=== PATIENT | female | born 1965 | race Caucasian/White ===

== ENCOUNTER 2018-05-16 06:04 | Day surgery (SDC) | payer OTHER ==
[2018-05-16] MEDS ORDERED: Ringers Lactate 1,000 ML IV ONE (06:26)
[2018-05-16 06:48] LABS: Specific Gravity 1.025 (1.005-1.030)
[2018-05-16] MEDS ORDERED: FENTANYL CITR 100 MCG/2 ML ONE (07:05)
[2018-05-16] MEDS ORDERED: ONDANSETRON HCL 40 MG/20 ML VIAL ONE (07:06)
[2018-05-16] MEDS ORDERED: PROPOFOL 200 MG/20 ML VIAL IV ONE (07:06)
[2018-05-16] MEDS ORDERED: LIDOCAINE 1% MPF 2 ML AMPULE ONE (07:09)
[2018-05-16] MEDS ORDERED: MIDAZOLAM HCL 2 MG/2 ML INJ ONE (07:10)
[2018-05-16] MEDS ORDERED: KETOROLAC 30 MG/ML INJ ONE (08:17)
--- NOTE | 2018-05-16 17:20 | OP ---
Date of Procedure: 05/16/2018 Surgeon: Radhika Houser MD Preoperative Diagnoses: Postmenopausal bleeding and leiomyoma. Postoperative Diagnoses: Postmenopausal bleeding and leiomyoma. Procedures Performed: Hysteroscopy, dilation and curettage with Symphion for resection of the endome trium. Anesthesia: General with LMA. Specimens: Endometrial curettings. Complications: None. Drains: None. Condition: The patient is stable. Findings: Endometrial cavity was empty. The endometrium appeared to be thickened, and there appeare d to be some adhesions on the right side, however, most of the endometrium appeared to be unremarkabl e without any tumors or irregularities. No impression of a leiomyoma seen inside the cavity. Indications For Procedure: The patient is a 52-year-old with postmenopausal bleeding. She was evalu ated with transvaginal ultrasound, which showed leiomyoma, subendometrial or submucosal. Her endomet rial thickness appeared to be significant, so she was counseled for cavity visualization and sampling . Her FSH level was 33.7 at this time and the lining thickness was 2.12 cm and appeared to be hydrog enous. There was a 2.3 cm posterior wall leiomyoma. She was consented and brought in for hysteroscopy, possible myomectomy, polypectomy, and D and C. Description Of Procedure: After informed consent was verified, she was taken back to the OR, placed in a supine fashion on the operating table. After general anesthesia was given, she was placed in a dorsal lithotomy position. Pelvic exam performed. Uterus 10 to 12 week size and anteflexed. No adn exal masses were palpable. Betadine prep x3 was done on the vaginal canal and the cervix. Speculum used to expose the cervix. Anterior lip grasped with 2 Allis clamps. The cervix dilated with Hegar dilators to 14-Niuean. Then , the Symphion lens and the sheath were used for priming and then this was directly placed into the c ervical canal under direct visualization. Uterine cavity was entered. The lining appeared to be thi ck. No intracavitary lesions. No leiomyomata. So I decided given the endometrial thickness that wa s noted as over 2 cm in this patient who is perimenopausal to perform the curettings with a Symphion so that the sampling would be optimal. The Symphion device was taken. The mean arterial pressure was 75 mmHg and the pressure on the pump w as 85 mmHg. Normal saline solution was used. The resectoscope was introduced into the uterine cavit y starting at the fundus in a 360 fashion starting in the canal in the upper part and dragging it jonna n. The entire canal was sampled for about 4 cm length in a circumferential fashion. Once there was adequate sampling, the adhesions on the right side were also taken down as well as on the top. Then I rinsed the cavity out. There was no need for coagulation at this point. Then, the scope was remov ed. The fluid deficit was minimal. Instrument, needle, and sponge counts were done after everything was removed and they were correct. The patient was recovered from anesthesia in the OR and taken to PACU in stable condition. She will follow up with me in 1 week for results. WILLIAM Voice ID: [id number] Report ID: [id number]
== END 2018-05-16 10:00 | disposition home or self-care (01) ==
LOC: OR 06:04
PROVIDERS: ATTEND Obstetrics & Gynecology
PROC: 0UDB8ZX Extraction of Endometrium, Via Natural or Artificial Opening Endoscopic, Diagnostic (ICD-10-PCS; principal; 2018-05-16 07:00)
DX: N95.0 Postmenopausal bleeding (principal); D25.9 Leiomyoma of uterus, unspecified; F32.9 Major depressive disorder, single episode, unspecified; Z82.49 Family history of ischemic heart disease and other diseases of the circulatory system; Z82.3 Family history of stroke; Z83.3 Family history of diabetes mellitus
CPT/HCPCS: 81025; 88305; J2001; J2250; J2405; J3010

== ENCOUNTER 2019-09-08 12:06 | Emergency (ER) | payer BC, OTHER ==
--- NOTE | 2019-09-08 13:48 | RAD REPORT ---
EXAM DESCRIPTION: RAD - Knee Left 3 View - 09/08/2019 1:30 pm CLINICAL HISTORY: PAINslip and fall accident COMPARISON: No comparisons FINDINGS: No fracture, dislocation or periosteal reaction.No joint effusion seen. No joint space adal rowing. No soft tissue abnormality. IMPRESSION: Negative left knee. Clinical concerns for internal derangement or occult bony injury could be further assessed with MR im aging.
--- NOTE | 2019-09-08 13:54 | EDPHYS ---
Physician Documentation [facility] Name: Angelique Day Age: 53 yrs Sex: Female : 1965 Arrival Date: 09/08/2019 Time: 12:10 Bed 18 Private MD: Adán Vega T ED Physician Jose Guadalupe Torres HPI: 09/08 13:06 This 53 yrs old Female presents to ER via Ambulatory with complaints of Fall pm1 Injury, Knee Pain. 13:06 The patient presents with pain, that is acute. The complaints affect the left knee. pm1 Context: The problem was sustained at home, resulted from twisting of the extremity, during a fall, the patient can partially bear weight, the patient is able to ambulate, with moderate difficulty, Problem is a result from a previous injury: No. Onset: The symptoms/episode began/occurred yesterday. Modifying factors: The symptoms are alleviated by remaining still, the symptoms are aggravated by weight bearing, bending knee. Associated signs and symptoms: Pertinent negatives calf tenderness, numbness, swelling, tingling. Treatment prior to arrival includes: over the counter medications, NSAIDS. Severity of symptoms: in the emergency department the symptoms have improved, with NSAIDs. The patient has not experienced similar symptoms in the past. The patient has not recently seen a physician. 13:06 Patient was getting out of the shower and her left leg was planted outside the shower pm1 as the right leg slipped in the shower. She spun and fell backward. No head injury, headache, neck pain, LOC. Patient with pain to left knee and left hip. Left hip pain has resolved. 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 tw2 Historical: - Allergies: 12:35 No Known Allergies; ss - PMHx: 12:35 Hypertension; ss - PSHx: 12:35 D\T\C; ss - Immunization history:: Adult Immunizations up to date. - Coronavirus screen:: The patient has NOT traveled to [place] in the past 14 days. Proceed with normal triage process as indicated. - Social history:: Smoking status: Patient denies any tobacco usage or history of. - Ebola Screening: : Patient denies exposure to infectious person Patient denies travel to an Ebola-affected area in the 21 days before illness onset. ROS: 13:06 Constitutional: Negative for fever, chills, and weight loss, Neck: Negative for injury, pm1 pain, and swelling, Cardiovascular: Negative for chest pain, palpitations, and edema, Respiratory: Negative for shortness of breath, cough, wheezing, and pleuritic chest pain, Abdomen/GI: Negative for abdominal pain, nausea, vomiting, diarrhea, and constipation, Back: Negative for injury and pain. 13:06 Skin: Negative for injury, rash, and discoloration, Neuro: Negative for headache, weakness, numbness, tingling, and seizure. 13:06 MS/extremity: Positive for pain, of the left knee, Negative for decreased range of motion, deformity. Exam: 13:06 Constitutional: This is a well developed, well nourished patient who is awake, alert, pm1 and in no acute distress. Head/Face: Normocephalic, atraumatic. Neck: Trachea midline, no thyromegaly or masses palpated, and no cervical lymphadenopathy. Supple, full range of motion without nuchal rigidity, or vertebral point tenderness. No Meningismus. Chest/axilla: Normal chest wall appearance and motion. Nontender with no deformity. No lesions are appreciated. Cardiovascular: Regular rate and rhythm with a normal S1 and S2. No gallops, murmurs, or rubs. No pulse deficits. Respiratory: Lungs have equal breath sounds bilaterally, clear to auscultation and percussion. No rales, rhonchi or wheezes noted. No increased work of breathing, no retractions or nasal flaring. Abdomen/GI: Soft, non-tender, with normal bowel sounds. No distension or tympany. No guarding or rebound. No evidence of tenderness throughout. Back: No spinal tenderness. No costovertebral tenderness. Full range of motion. Skin: Warm, dry with normal turgor. Normal color with no rashes, no lesions, and no evidence of cellulitis. 13:06 Musculoskeletal/extremity: Extremities: grossly normal except: noted in the left knee: negative valgus and varus stress test. Pain with rotation of lower leg medially, There is no evidence of decreased ROM, deformity, swelling. Vital Signs: 12:35 BP 131 / 96; Pulse 99; Resp 16; Temp 97.4(TE); Pulse Ox 98% on R/A; Weight 92.53 kg; ss Height 5 ft. 6 in. (167.64 cm); Pain 0/10; 13:19 BP 143 / 95; Pulse 89; Resp 17; Pulse Ox 96% on R/A; tw2 12:35 Body Mass Index 32.93 (92.53 kg, 167.64 cm) MDM: 12:37 Patient medically screened. pm1 13:52 Data reviewed: vital signs. Data interpreted: Pulse oximetry: on room air is 96 %. pm1 Interpretation: normal. Counseling: I had a detailed discussion with the patient and/or guardian regarding: the historical points, exam findings, and any diagnostic results supporting the discharge/admit diagnosis, radiology results, the need for outpatient follow up, to return to the emergency department if symptoms worsen or persist or if there are any questions or concerns that arise at home. 09/08 12:38 Order name: Knee Left 3 View XRAY pm1 09/08 13:19 Order name: Ice pack; Complete Time: 13:19 tw2 09/08 13:52 Order name: Knee Immobilizer; Complete Time: 14:12 pm1 09/08 13:52 Order name: Crutches; Complete Time: 14:12 pm1 Administered Medications: No medications were administered Disposition: 09/08/19 13:53 Discharged to Home. Impression: Pain in left knee. - Condition is Stable. - Discharge Instructions: Elastic Bandage and RICE, Crutch Use, Knee Immobilizer, Knee Pain. - Prescriptions for Ultracet 37.5- 325 mg Oral Tablet - take 1 tablet by ORAL route every 6 hours As needed - for up to 5 days; do not exceed 8 tablets per day.; 20 tablet. - Medication Reconciliation Form, Thank You Letter, Antibiotic Education, Prescription Opioid Use form. - Follow up: Emergency Department; When: As needed; Reason: Worsening of condition. Follow up: Private Physician; When: 2 - 3 days; Reason: Recheck today's complaints, Continuance of care, Re-evaluation by your physician. - Problem is new. - Symptoms have improved. Addendum: 09/10/2019 08:21 Co-signature as Attending Physician, Jose Guadalupe Torres MD I agree with the assessment and c pritchard plan of care. Signatures: Dispatcher [employer] EDMT Jose Guadalupe Torres MD MD cha Smirch, Shelby, RN RN Kenton Carbajal, ROSALVA HEAD START TEACHER pm1 Gillian Edmonds RN RN tw2 Corrections: (The following items were deleted from the chart) 09/08 14:13 13:53 09/08/2019 13:53 Discharged to Home. Impression: Pain in left knee. Condition is tw2 Stable. Forms are Medication Reconciliation Form, Thank You Letter, Antibiotic Education, Prescription Opioid Use. Follow up: Emergency Department; When: As needed; Reason: Worsening of condition. Follow up: Private Physician; When: 2 - 3 days; Reason: Recheck today's complaints, Continuance of care, Re-evaluation by your physician. Problem is new. Symptoms have improved. pm1
--- NOTE | 2019-09-08 13:54 | ER ---
Nurse's Notes [facility] Name: Angelique Dya Age: 53 yrs Sex: Female : 1965 Arrival Date: 09/08/2019 Time: 12:10 Bed 18 Private MD: Adán Vega T Diagnosis: Pain in left knee Presentation: 09/08 12:32 Presenting complaint: Presenting complaint: Patient states: L knee pain after slipping ss in shower yesterday. Transition of care: patient was not received from another setting of care. Onset of symptoms was September 07, 2019. Risk Assessment: Do you want to hurt yourself or someone else? Patient reports no desire to harm self or others. Initial Sepsis Screen: Does the patient meet any 2 criteria? HR > 90 bpm. Does the patient have a suspected source of infection? No. Patient's initial sepsis screen is negative. Care prior to arrival: None. 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 tw2 Historical: - Allergies: 12:35 No Known Allergies; ss - PMHx: 12:35 Hypertension; ss - PSHx: 12:35 D\T\C; ss - Immunization history:: Adult Immunizations up to date. - Coronavirus screen:: The patient has NOT traveled to [place] in the past 14 days. Proceed with normal triage process as indicated. - Social history:: Smoking status: Patient denies any tobacco usage or history of. - Ebola Screening: : Patient denies exposure to infectious person Patient denies travel to an Ebola-affected area in the 21 days before illness onset. Screenin:55 Abuse screen: Denies threats or abuse. Nutritional screening: No deficits noted. tw2 Tuberculosis screening: No symptoms or risk factors identified. Fall Risk None identified. Assessment: 12:40 General: Appears in no apparent distress. well groomed, Behavior is calm, cooperative, tw2 appropriate for age. Pain: Complains of pain in left knee. Neuro: Level of Consciousness is awake, alert, obeys commands, Oriented to person, place, time, situation. Cardiovascular: Patient's skin is warm and dry. Respiratory: Airway is patent Respiratory effort is even, unlabored, Respiratory pattern is regular, symmetrical. GI: No signs and/or symptoms were reported involving the gastrointestinal system. : No signs and/or symptoms were reported regarding the genitourinary system. EENT: No signs and/or symptoms were reported regarding the EENT system. Derm: No signs and/or symptoms reported regarding the dermatologic system. Musculoskeletal: Circulation, motion, and sensation intact. Range of motion: intact in all extremities, Reports pain in left knee. 12:54 Reassessment: provider at bedside at this time. tw2 13:13 Reassessment: xray at bedside at this time. tw2 13:20 Reassessment: Patient appears in no apparent distress at this time. No changes from tw2 previously documented assessment. Patient and/or family updated on plan of care and expected duration. Pain level reassessed. Patient is alert, oriented x 3, equal unlabored respirations, skin warm/dry/pink. 14:13 Reassessment: Patient appears in no apparent distress at this time. No changes from tw2 previously documented assessment. Patient and/or family updated on plan of care and expected duration. Pain level reassessed. Patient is alert, oriented x 3, equal unlabored respirations, skin warm/dry/pink. Vital Signs: 12:35 BP 131 / 96; Pulse 99; Resp 16; Temp 97.4(TE); Pulse Ox 98% on R/A; Weight 92.53 kg; ss Height 5 ft. 6 in. (167.64 cm); Pain 0/10; 13:19 BP 143 / 95; Pulse 89; Resp 17; Pulse Ox 96% on R/A; tw2 12:35 Body Mass Index 32.93 (92.53 kg, 167.64 cm) ED Course: 12:10 Patient arrived in ED. mr 12:10 Adán Vega MD is Private Physician. mr 12:32 Triage completed. ss 12:35 Arm band placed on left wrist. ss 12:36 Bed in low position. Call light in reach. tw2 12:37 Kenton Carbajal NP is PHCP. pm1 12:37 Jose Guadalupe Torres MD is Attending Physician. pm1 12:54 Gillian Edmonds RN is Primary Nurse. tw2 14:13 No provider procedures requiring assistance completed. Patient did not have IV access tw2 during this emergency room visit. Administered Medications: No medications were administered Outcome: 13:53 Discharge ordered by MD. pm1 14:13 Discharged to home via wheelchair, with crutches, with significant other. tw2 14:13 Condition: stable 14:13 Discharge instructions given to patient, significant other, Instructed on discharge instructions, follow up and referral plans. no drinking with medication, no driving heavy equipment, medication usage, safety practices, crutch walking, Demonstrated understanding of instructions, follow-up care, medications, crutch walking, Prescriptions given X 1. 14:13 Patient left the ED. tw2 Signatures: Amanda Razo Shelby RN RN Kenton Carbajal NP ART TRACER pm1 Gillian Edmonds RN RN tw2 Corrections: (The following items were deleted from the chart) 12:34 12:32 Presenting complaint: [facility] 12:34 12:32 Onset of symptoms was September 08, 2019 [facility]
[2019-09-08 14:20] VITALS: TEMP 97.4
[2019-09-08 14:21] VITALS: BP 143/95; O2SAT 96
== END 2019-09-08 14:13 | disposition home or self-care (01) ==
LOC: ER 12:06
DX: M25.562 Pain in left knee (principal); W18.2XXA Fall in (into) shower or empty bathtub, initial encounter; Y93.89 Activity, other specified; Y92.012 Bathroom of single-family (private) house as the place of occurrence of the external cause
CPT/HCPCS: 99283

== ENCOUNTER 2020-06-24 08:51 | Emergency (ER) | payer BC ==
[2020-06-24 09:51] LABS: Absolute Lymphocytes (CBC) 0.5 K/uL (0.7-4.9); Basophils % 0.1 % (0-1.3); Hematocrit 38.1 % (36.0-45.0); Lymphocytes % 7.3 % (15.3-44.8); MPV 8.3 fL (7.6-11.3)
[2020-06-24 09:54] LABS: ALT/SGPT 59 U/L (12-78); AST/SGOT 38 U/L (15-37); Alkaline Phosphatase 74 U/L (45-117); BUN Blood Urea Nitrogen 8 mg/dL (7-18); Bicarbonate 26 mmol/L (21-32); Bilirubin Total 0.7 mg/dL (0.2-1.0); Glucose Level 131 mg/dL (74-106); Potassium 3.3 mmol/L (3.5-5.1); Protein, Total 6.9 g/dL (6.4-8.2); Sodium Level 135 mmol/L (136-145)
[2020-06-24] MEDS ORDERED: IBUPROFEN 200 MG TAB PO ONE (09:59)
[2020-06-24] MEDS ORDERED: dexAMETHasone 10 MG/ML VIAL ONE (09:59)
[2020-06-24] MEDS ORDERED: ASPIRIN 81 MG CHEWABLE TABLET ONE (09:59)
[2020-06-24] MEDS ORDERED: IBUPROFEN 400 MG TAB ONE (10:00)
[2020-06-24] MEDS ORDERED: CEFTRIAXONE/SWI 1gm 1 GM/10 ML SYR ONE (10:00)
[2020-06-24] MEDS ORDERED: AZITHROMYCIN IV 500 MG in NA CHLORIDE 0.9% 250 ML IVPB ONE (10:00)
[2020-06-24] MEDS ORDERED: FAMOTIDINE 20 MG/2 ML VIAL IV ONE (10:00)
[2020-06-24] MEDS ORDERED: NA CHLORIDE 0.9% 1,000 ML ONE ×2 (10:00→10:30)
[2020-06-24] MEDS ORDERED: POTASSIUM 25 MEQ EFFERV TAB ONE (10:30)
--- NOTE | 2020-06-24 10:36 | RAD REPORT ---
EXAM DESCRIPTION: [facility] Single View06/24/2020 10:04 am CLINICAL HISTORY: Shortness of breath COMPARISON: none FINDINGS: Mild bilateral pulmonary opacities. The heart is normal size IMPRESSION: Mild bilateral pulmonary opacities may indicate pneumonia
--- NOTE | 2020-06-24 10:36 | RAD REPORT ---
EXAM DESCRIPTION: CT - Chest For Pe Angio - 06/24/2020 10:25 am CLINICAL HISTORY: Shortness of breath COMPARISON: None. TECHNIQUE: Dynamically enhanced axial 3 mm thick images of the chest were obtained during administra tion of <100> mL Isovue 370 IV contrast. Coronal and oblique reconstruction images were generated and reviewed. Exam utilizes a protocol for optimal evaluation of pulmonary arterial tree. Maximum intensity projections 3D imaging was utilized All CT scans are performed using dose optimization technique as appropriate and may include automated exposure control or mA/KV adjustment according to patient size. FINDINGS: Evaluation of some of the peripheral pulmonary arteries is limited secondary to respirator y motion artifact. A pulmonary embolus is not seen. A thoracic aortic aneurysm is not noted. A pleural effusion is not seen. A pericardial effusion is not seen. Mild bilateral ground-glass opacities within the lungs. Mild bilateral hilar lymphadenopathy IMPRESSION: Negative for a pulmonary embolism. Mild bilateral ground-glass opacities within the lungs may indicate Covid pneumonia Mild bilateral hilar lymphadenopathy
--- NOTE | 2020-06-24 10:41 | EDPHYS ---
Physician Documentation [facility] Name: Angelique Day Age: 54 yrs Sex: Female : 1965 Arrival Date: 06/24/2020 Time: 08:56 Bed 2 Private MD: ED Physician Jose Guadalupe Torres HPI: 06/24 09:57 This 54 yrs old Female presents to ER via Ambulatory with complaints of Fever.jesica 09:57 The patient reports fever, that was measured at 102 degrees Fahrenheit. Onset: The jesica symptoms/episode began/occurred 3 day(s) ago. Modifying factors: there are no obvious modifying factors. Associated signs and symptoms: Pertinent positives: arthralgias, chills, cough. Severity of symptoms: At their worst the symptoms were mild in the emergency department the symptoms are unchanged. The patient has not experienced similar symptoms in the past. LINKER UP: 10:02 [facility] N/A - tw2 Historical: - Allergies: 09:13 No Known Allergies; ss - Home Meds: 09:19 Effexor Oral [Active]; losartan oral oral [Active]; ss - PMHx: 09:13 Hypertension; ss 09:19 Arthritis; ss - PSHx: 09:13 D\T\C; ss - Immunization history:: Adult Immunizations up to date. - Social history:: Smoking status: Patient denies any tobacco usage or history of. - Family history:: not pertinent. ROS: 09:57 Eyes: Negative for injury, pain, redness, and discharge, ENT: Negative for injury, jesica pain, and discharge, Neck: Negative for injury, pain, and swelling, Cardiovascular: Negative for chest pain, palpitations, and edema, Abdomen/GI: Negative for abdominal pain, nausea, vomiting, diarrhea, and constipation, Back: Negative for injury and pain, : Negative for injury, bleeding, discharge, and swelling, MS/Extremity: Negative for injury and deformity, Skin: Negative for injury, rash, and discoloration, Neuro: Negative for headache, weakness, numbness, tingling, and seizure, Psych: Negative for depression, anxiety, suicide ideation, homicidal ideation, and hallucinations, Allergy/Immunology: Negative for hives, rash, and allergies, Endocrine: Negative for neck swelling, polydipsia, polyuria, polyphagia, and marked weight changes, Hematologic/Lymphatic: Negative for swollen nodes, abnormal bleeding, and unusual bruising. 09:57 Respiratory: Positive for cough, with no reported sputum. Exam: 09:57 Constitutional: This is a well developed, well nourished patient who is awake, alert, jesica and in no acute distress. Head/Face: Normocephalic, atraumatic. Eyes: Pupils equal round and reactive to light, extra-ocular motions intact. Lids and lashes normal. Conjunctiva and sclera are non-icteric and not injected. Cornea within normal limits. Periorbital areas with no swelling, redness, or edema. ENT: Nares patent. No nasal discharge, no septal abnormalities noted. Tympanic membranes are normal and external auditory canals are clear. Oropharynx with no redness, swelling, or masses, exudates, or evidence of obstruction, uvula midline. Mucous membranes moist. Neck: Trachea midline, no thyromegaly or masses palpated, and no cervical lymphadenopathy. Supple, full range of motion without nuchal rigidity, or vertebral point tenderness. No Meningismus. Chest/axilla: Normal chest wall appearance and motion. Nontender with no deformity. No lesions are appreciated. Respiratory: Lungs have equal breath sounds bilaterally, clear to auscultation and percussion. No rales, rhonchi or wheezes noted. No increased work of breathing, no retractions or nasal flaring. Abdomen/GI: Soft, non-tender, with normal bowel sounds. No distension or tympany. No guarding or rebound. No evidence of tenderness throughout. Back: No spinal tenderness. No costovertebral tenderness. Full range of motion. Female : Normal external genitalia. Skin: Warm, dry with normal turgor. Normal color with no rashes, no lesions, and no evidence of cellulitis. MS/ Extremity: Pulses equal, no cyanosis. Neurovascular intact. Full, normal range of motion. Neuro: Awake and alert, GCS 15, oriented to person, place, time, and situation. Cranial nerves II-XII grossly intact. Motor strength 5/5 in all extremities. Sensory grossly intact. Cerebellar exam normal. Normal gait. 09:57 Cardiovascular: Rate: tachycardic, Rhythm: regular, Pulses: Pulses are 4+ in bilateral radial, brachial, femoral, popliteal, posterior tibial and and dorsalis pedis arteries.. Heart sounds: normal, Edema: is not appreciated, JVD: is not appreciated. Vital Signs: 09:07 BP 151 / 82; Pulse 102; Resp 16; Temp 101(O); Pulse Ox 97% on R/A; Weight 99.79 kg; ss Height 5 ft. 6 in. (167.64 cm); Pain 5/10; 10:13 BP 136 / 68; Pulse 95; Resp 17; Pulse Ox 97% on R/A; tw2 11:13 BP 122 / 67; Pulse 91; Resp 18; Temp 99.1(O); Pulse Ox 97% on R/A; tw2 11:43 BP 121 / 85; Pulse 85; Resp 17; Pulse Ox 99% on R/A; tw2 09:07 Body Mass Index 35.51 (99.79 kg, 167.64 cm) ss MDM: 08:59 Patient medically screened. [facility] 10:02 Differential diagnosis: viral Infection, bacterial infection, URI, bronchitis, jesica pneumonia. Data reviewed: vital signs, nurses notes, lab test result(s), EKG, radiologic studies. Data interpreted: teletypesetter monitor: rate is 102 beats/min, rhythm is regular, Pulse oximetry: on room air is 97 %. Test interpretation: by ED physician or midlevel provider: ECG, plain radiologic studies. 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 06/24 09:10 Order name: CBC with Diff [facility] 06/24 09:10 Order name: Comprehensive Metabolic Panel; Complete Time: 10:04 [facility] 06/24 09:10 Order name: Chest Single View XRAY [facility] 06/24 09:10 Order name: Blood Culture Adult (2) [facility] 06/24 09:10 Order name: D-Dimer; Complete Time: 10:04 [facility] 06/24 10:05 Order name: CT Chest For PE Angio [facility] 06/24 09:40 Order name: IV Start; Complete Time: 10:00 tw2 Administered Medications: 09:53 Drug: NS 0.9% 1000 ml Route: IV; Rate: 1 bolus; Site: right wrist; tw2 11:43 Follow up: Response: No adverse reaction; IV Status: Completed infusion; IV Intake: tw2 1000ml 09:54 Drug: Pepcid 20 mg Route: IVP; Site: right wrist; tw2 10:09 Follow up: Response: No adverse reaction tw2 09:56 Drug: Rocephin 1 grams Route: IV; Rate: per protocol; Site: right wrist; tw2 09:58 Follow up: Response: No adverse reaction; IV Intake: 10ml tw2 09:58 Follow up: Response: No adverse reaction; IV Status: Completed infusion; IV Intake: [id number] 09:58 Drug: Motrin 600 mg Route: PO; tw2 11:13 Follow up: Response: No adverse reaction; Temperature is decreased tw2 09:59 Drug: Decadron - Dexamethasone 10 mg Route: IVP; Site: right wrist; tw2 10:09 Follow up: Response: No adverse reaction tw2 10:00 Drug: Aspirin Chewable Tablet 162 mg Route: PO; tw2 10:09 Follow up: Response: No adverse reaction tw2 10:08 Drug: Zithromax 500 mg Route: IVPB; Infused Over: 1 hrs; Site: right wrist; tw2 11:50 Follow up: Response: No adverse reaction; IV Status: Completed infusion; IV Intake: tw2 250ml 10:37 Drug: NS 0.9% 1000 ml Route: IV; Rate: 1 bolus; Site: right wrist; tw2 11:50 Follow up: Response: No adverse reaction; IV Status: Completed infusion; IV Intake: tw2 1000ml 10:37 Drug: Potassium Effervescent Tablet 50 mEq Route: PO; tw2 10:47 Follow up: Response: No adverse reaction tw2 Disposition: 06/24/20 10:40 Discharged to Home. Impression: Fever, unspecified, Other pneumonia, unspecified organism - covid 19, multifocal, Hypokalemia. - Condition is Stable. - Discharge Instructions: Potassium Content of Foods, Community-Acquired Pneumonia, Adult, Community-Acquired Pneumonia, Adult, [id number], Aspirin and Your Heart, Fever, Adult, [id number], Hypokalemia, COVID-19. - Prescriptions for dexamethasone 2 mg Oral tablet - take 1 tablet by ORAL route 3 times per day; 15 tablet. Pepcid 20 mg Oral Tablet - take 1 tablet by ORAL route every 12 hours for 10 days; 20 tablet. Zithromax 500 mg Oral Tablet - take 1 tablet by ORAL route once daily for 4 days; 4 tablet. - Medication Reconciliation Form, Thank You Letter, Antibiotic Education, Prescription Opioid Use form. - Follow up: Private Physician; When: 2 - 3 days; Reason: Recheck today's complaints, Continuance of care, Re-evaluation by your physician. Follow up: Garland Betancourt; When: 2 - 3 days; Reason: Recheck today's complaints, Re-evaluation by your physician. - Problem is new. - Symptoms have improved. Signatures: Dispatcher [employer] EDMS Jose Guadalupe Torres MD MD cha Smirch, Shelby, RN RN ss Gillian Edmonds RN RN tw2 Corrections: (The following items were deleted from the chart) 11:52 10:40 06/24/2020 10:40 Discharged to Home. Impression: Fever, unspecified; Other tw2 pneumonia, unspecified organism - covid 19, multifocal; Hypokalemia. Condition is Stable. Discharge Instructions: Potassium Content of Foods, Community-Acquired Pneumonia, Adult, Community-Acquired Pneumonia, Adult, [id number], Aspirin and Your Heart, Fever, Adult, [id number], Hypokalemia, COVID-19. Prescriptions for dexamethasone 2 mg Oral tablet - take 1 tablet by ORAL route 3 times per day; 15 tablet, Pepcid 20 mg Oral Tablet - take 1 tablet by ORAL route every 12 hours for 10 days; 20 tablet, Zithromax 500 mg Oral Tablet - take 1 tablet by ORAL route once daily for 4 days; 4 tablet. and Forms are Medication Reconciliation Form, Thank You Letter, Antibiotic Education, Prescription Opioid Use. Follow up: Private Physician; When: 2 - 3 days; Reason: Recheck today's complaints, Continuance of care, Re-evaluation by your physician. Follow up: Garland Betancourt; When: 2 - 3 days; Reason: Recheck today's complaints, Re-evaluation by your physician. Problem is new. Symptoms have improved. jesica
--- NOTE | 2020-06-24 10:41 | ER ---
Nurse's Notes [facility] Name: Angelique Day Age: 54 yrs Sex: Female : 1965 Arrival Date: 06/24/2020 Time: 08:56 Bed 2 Private MD: Diagnosis: Fever, unspecified;Other pneumonia, unspecified organism-covid 19, multifocal;Hypokalemia Presentation: 06/24 09:07 Chief complaint: Patient states: Swabbed for COVID19 Tuesday and was told yesterday ss that she was positive. PT reports that Dr. Vega sent her to ED for a chest XRAY because she developed a fever since yesterday and needs something stronger for her headache. Coronavirus screen: Client denies travel out of the [place] in the last 14 days. Ebola Screen: Patient denies exposure to infectious person. Patient denies travel to an Ebola-affected area in the 21 days before illness onset. Initial Sepsis Screen: Does the patient meet any 2 criteria? Temp <36.0*C (96.8*F)) or > 38.3*C (100.9*F). HR > 90 bpm. Does the patient have a suspected source of infection? Yes: Other: possible COVID pneumonia. Risk Assessment: Do you want to hurt yourself or someone else? Patient reports no desire to harm self or others. Onset of symptoms was June 22, 2020. 09:07 Method Of Arrival: Ambulatory 09:07 Acuity: [place] 3 ss RADIO OPERATOR: 10:02 LMP N/A - tw2 Historical: - Allergies: 09:13 No Known Allergies; ss - Home Meds: 09:19 Effexor Oral [Active]; losartan oral oral [Active]; ss - PMHx: 09:13 Hypertension; 09:19 Arthritis; - PSHx: 09:13 D\T\C; ss - Immunization history:: Adult Immunizations up to date. - Social history:: Smoking status: Patient denies any tobacco usage or history of. - Family history:: not pertinent. Screenin:43 Abuse screen: Denies threats or abuse. Nutritional screening: No deficits noted. em Tuberculosis screening: No symptoms or risk factors identified. Fall Risk None identified. Assessment: 09:00 General: Appears in no apparent distress. obese, well groomed, Behavior is calm, tw2 cooperative, appropriate for age. Pain: Denies pain. Neuro: Reports fever. Cardiovascular: Heart tones S1 S2 Patient's skin is warm and dry. Respiratory: Airway is patent Respiratory effort is even, unlabored, Respiratory pattern is regular, symmetrical, Breath sounds are clear. GI: No signs and/or symptoms were reported involving the gastrointestinal system. Abdomen is round non-distended, obese, Bowel sounds present X 4 quads. : No signs and/or symptoms were reported regarding the genitourinary system. EENT: No signs and/or symptoms were reported regarding the EENT system. Derm: No signs and/or symptoms reported regarding the dermatologic system. Derm: Skin temperature is hot. Musculoskeletal: Range of motion: intact in all extremities. 11:13 Reassessment: Patient appears in no apparent distress at this time. No changes from tw2 previously documented assessment. Patient and/or family updated on plan of care and expected duration. Pain level reassessed. Patient is alert, oriented x 3, equal unlabored respirations, skin warm/dry/pink. 11:43 Reassessment: Patient appears in no apparent distress at this time. No changes from tw2 previously documented assessment. Patient and/or family updated on plan of care and expected duration. Pain level reassessed. Patient is alert, oriented x 3, equal unlabored respirations, skin warm/dry/pink. Patient states feeling better. 11:52 Reassessment: Patient appears in no apparent distress at this time. No changes from tw2 previously documented assessment. Vital Signs: 09:07 BP 151 / 82; Pulse 102; Resp 16; Temp 101(O); Pulse Ox 97% on R/A; Weight 99.79 kg; Height 5 ft. 6 in. (167.64 cm); Pain 5/10; 10:13 BP 136 / 68; Pulse 95; Resp 17; Pulse Ox 97% on R/A; tw2 11:13 BP 122 / 67; Pulse 91; Resp 18; Temp 99.1(O); Pulse Ox 97% on R/A; tw2 11:43 BP 121 / 85; Pulse 85; Resp 17; Pulse Ox 99% on R/A; tw2 09:07 Body Mass Index 35.51 (99.79 kg, 167.64 cm) ED Course: 08:56 Patient arrived in ED. ds1 08:59 Jose Guadalupe Torres MD is Attending Physician. jesica 09:13 Triage completed. ss 09:19 Arm band placed on right wrist. ss 09:25 Initial lab(s) drawn, by me, sent to lab. First set of blood cultures drawn. Inserted em1 saline lock: 20 gauge in right wrist, using aseptic technique. Blood collected. 09:39 Gillian Edmonds RN is Primary Nurse. tw2 09:43 Patient has correct armband on for positive identification. Placed in gown. Bed in low em position. Call light in reach. Side rails up X2. Adult w/ patient. Pulse ox on. NIBP on. 09:52 Second set of blood cultures drawn by me. tw2 10:04 Chest Single View XRAY In Process Unspecified. EDMS 10:25 CT Chest For PE Angio In Process Unspecified. EDMS 10:40 Garland Betancourt MD is Referral Physician. jesica 10:44 Awaiting: completion of IV abx and fluids PRIOR to discharge. tw2 11:52 No provider procedures requiring assistance completed. IV discontinued, intact, tw2 bleeding controlled, No redness/swelling at site. Pressure dressing applied. Administered Medications: 09:53 Drug: NS 0.9% 1000 ml Route: IV; Rate: 1 bolus; Site: right wrist; tw2 11:43 Follow up: Response: No adverse reaction; IV Status: Completed infusion; IV Intake: tw2 1000ml 09:54 Drug: Pepcid 20 mg Route: IVP; Site: right wrist; tw2 10:09 Follow up: Response: No adverse reaction tw2 09:56 Drug: Rocephin 1 grams Route: IV; Rate: per protocol; Site: right wrist; tw2 09:58 Follow up: Response: No adverse reaction; IV Intake: 10ml tw2 09:58 Follow up: Response: No adverse reaction; IV Status: Completed infusion; IV Intake: [id number] 09:58 Drug: Motrin 600 mg Route: PO; tw2 11:13 Follow up: Response: No adverse reaction; Temperature is decreased tw2 09:59 Drug: Decadron - Dexamethasone 10 mg Route: IVP; Site: right wrist; tw2 10:09 Follow up: Response: No adverse reaction tw2 10:00 Drug: Aspirin Chewable Tablet 162 mg Route: PO; tw2 10:09 Follow up: Response: No adverse reaction tw2 10:08 Drug: Zithromax 500 mg Route: IVPB; Infused Over: 1 hrs; Site: right wrist; tw2 11:50 Follow up: Response: No adverse reaction; IV Status: Completed infusion; IV Intake: tw2 250ml 10:37 Drug: NS 0.9% 1000 ml Route: IV; Rate: 1 bolus; Site: right wrist; tw2 11:50 Follow up: Response: No adverse reaction; IV Status: Completed infusion; IV Intake: tw2 1000ml 10:37 Drug: Potassium Effervescent Tablet 50 mEq Route: PO; tw2 10:47 Follow up: Response: No adverse reaction tw2 Intake: 09:58 IV: 10ml; Total: 10ml. tw2 09:58 IV: 10ml; Total: 20ml. tw2 11:43 IV: 1000ml; Total: 1020ml. tw2 11:50 IV: 1000ml; Total: 2020ml. tw2 11:50 IV: 250ml; Total: 2270ml. tw2 Outcome: 10:40 Discharge ordered by . jesica 11:52 Discharged to home ambulatory, with significant other. tw2 11:52 Condition: stable 11:52 Discharge instructions given to patient, significant other, Instructed on discharge instructions, follow up and referral plans. medication usage, Demonstrated understanding of instructions, follow-up care, medications, Prescriptions given X 4. 11:52 Patient left the ED. tw2 Signatures: Dispatcher [employer] Jose Guadalupe Moe MD MD cha Munoz, Edgar, RN RN Odalis Brenner Eric em1 Smirch, Shelby, RN RN ss Wise, Tara, RN RN tw2
[2020-06-24 12:13] VITALS: TEMP 99.1
[2020-06-24 12:15] VITALS: BP 121/85; O2SAT 99
[2020-06-24 12:37] LABS: Blood Morphology Comment NOT SEEN (NOT SEEN); Platelet Estimate ADEQ; White Blood Cell Scan OK (OK)
== END 2020-06-24 11:52 | disposition home or self-care (01) ==
LOC: ER 08:51
DX: U07.1 COVID-19 (principal); J18.8 Other pneumonia, unspecified organism; E87.6 Hypokalemia; I10 Essential (primary) hypertension
CPT/HCPCS: 87040 ×2; 85025; 36415; 85379; 80053; 71275; 71045; Q9967; J0456; J1100; J0696; J7050; J7030 ×2; 96365; 96366; 96375; 99284